=== PATIENT | male | born 2000 | race Two or more races ===

== ENCOUNTER 2020-04-28 14:31 | Emergency (ER) | payer OTHER ==
[2020-04-28 15:08] VITALS: BP 126/70
--- NOTE | 2020-04-28 15:58 | ER Document Report ---
HPI - HPI Patient complains to provider of: Buttock cyst Time Seen by Provider: 04/28/20 15:45 Pain Level: 2 Context: 19-year-old male presents to the emergency room with concerns of a pilonidal cyst. 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 States he was seen by a medical person while deployed and they thought it was just slightly swollen prescribed him Motrin. States it progressively got worse and 2 weeks ago it ruptured and drained a moderate amount of blood and pus. He now states that he has "holes" in the area. He states his mom told him that when he was younger he did have a pilonidal cyst he does not recall it. [place] and was told there is nothing they can do for him. He denies any fevers, minimal pain. Not currently taking any medications for his symptoms. States he is not had any more discharge or draining for a week. Associated Symptoms: None Exacerbated by: Movement Relieved by: Remaining still Similar symptoms previously: No Recently seen / treated by doctor: No - ROS Systems Reviewed and Negative: Yes All other systems reviewed and negative - CONSTITUTIONAL Constitutional: DENIES: Fever - GASTROINTESTINAL Gastrointestinal: DENIES: Abdominal Pain, Nausea, Patient vomiting, Diarrhea, Constipation, Black / Bloody Stools - URINARY Urinary: DENIES: Dysuria, Urgency, Frequency - DERM Skin Color: Erythema Past Medical History - General Information source: Patient - Social History Smoking Status: Never Smoker Frequency of alcohol use: Occasional Family History: Reviewed & Not Pertinent Vertical Provider Document - CONSTITUTIONAL Agree With Documented VS: Yes Exam Limitations: No Limitations General Appearance: Mild Distress - INFECTION CONTROL TRAVEL OUTSIDE OF THE [place] IN LAST 30 DAYS: No - HEENT HEENT: Atraumatic, Normocephalic - NECK Neck: Normal Inspection, Supple - RESPIRATORY Respiratory: Breath Sounds Normal, No Respiratory Distress - CARDIOVASCULAR Cardiovascular: Regular Rate, Regular Rhythm, No Murmur - GI/ABDOMEN Gastrointestinal: Abdomen Soft, Abdomen Non-Tender, No Organomegaly, Normal Bowel Sounds. negative: Abdominal Guarding, Abdominal Rebound Notes: Patient was examined with hot plate plywood press feeder TOM Bond patient has mild erythema and tenderness from a previous pilonidal abscess that has ruptured. There are no open draining areas. No palpable abscess at this point. - NEURO Level of Consciousness: Awake, Alert, Appropriate Motor/Sensory: No Motor Deficit, No Sensory Deficit - DERM Integumentary: Warm, Dry, No Rash Notes: Erythema and tenderness from a previous spinal cyst. There is no active discharge or draining noted there is no palpable abscess noted Course - Re-evaluation Re-evalutation: 04/28/20 15:54 Patient was counseled on warm soaks 20 minutes 3 times a day. Antibiotics as prescribed. Counseled on importance of an outpatient follow-up with general surgery if symptoms do not improve in the next 2 to 3 days or if worsen. Patie nt will be provided with an on-call surgeon. Patient was given strict return to the emergency room guidelines. Return for any new or worsening symptoms. All questions were answered. Patient verbalized understanding and agrees with plan of care. - Vital Signs Vital signs: Temp Pulse Resp BP Pulse Ox 98.0 F 78 20 126/70 H 99 04/28/20 15:07 04/28/20 15:07 04/28/20 15:07 04/28/20 15:07 04/28/20 15:07 Discharge - Discharge Clinical Impression: Pilonidal cyst without abscess Condition: Stable Disposition: HOME, SELF-CARE Instructions: Cellulitis ([facility]), Cephalexin ([facility]) Additional Instructions: Use warm compresses or hot soaks 20 minutes 3 times a day. Take antibiotics as prescribed. Outpatient follow-up with general surgery if not improving or if symptoms worsen in the next 2 to 3 days. Return to the emergency room for any new or worsening symptoms. Prescriptions: Cephalexin Monohydrate [Keflex 500 mg Capsule] 500 mg PO Q6H 10 Days #40 capsule Referrals: LAMONT SARKAR MD [ACTIVE STAFF] - Follow up as needed
== END 2020-04-28 16:02 | disposition home or self-care (01) ==
LOC: ER 14:31
DX: L05.91 Pilonidal cyst without abscess (principal)
CPT/HCPCS: 99283